=== PATIENT | female | born 1945 | race Two or more races ===

== ENCOUNTER 2018-07-09 15:14 | Emergency (ER) | payer MEDICARE ==
[2018-07-09 15:23] VITALS: BP 137/70; PULSE 81; TEMP 97.8; BMI 32.0
--- NOTE | 2018-07-09 15:54 | PDOC ---
History of Present Illness - General Chief Complaint: Headache Stated Complaint: BLOOD PRESSURE CHECK - History of Present Illness Initial Comments: 07/09/18 15:53 73 yo F with h/o HTN who p/w GUPTA, and lightheadedness. Patient Uzbek speaking ( foreign language interpreter #[id number]). Patient reports acute onset of dull 3/10, diffuse, unremitting headache and lightheadedness beginning this morning. No identifiable triggers or alleviators. GUPTA consistent with prior headaches in past. GUPTA gradual, and minimal at onset. Denies OTC analgesia or symptom control. No photophobia, phonophobia. Denies fall, head trauma, neck trauma, LOC. Patient denies lacrimation, rhinnorhea, vision change, tinnitus, hearing loss, vertigo, neck stiffness, pain, vertigo, N/V, F,C, cough, CP, SOB, urinary complaints, abdominal pain, hematuria, diarrhea, constipation, BPR, lightheadedness, weakness, sensory changes. PMHx: as noted above ROS: as noted SHx: Denies Etoh, tobacco, IVDA Allergies: NKDA Past History - Past Medical History Allergies/Adverse Reactions: Allergies Allergy/AdvReac Type Severity Reaction Status Date / Time tramadol Allergy Intermediate Verified 07/09/18 15:19 Home Medications: Ambulatory Orders Aspirin Coated [Ecotrin -] 81 mg PO DAILY 07/12/15 Enalapril Maleate [Vasotec -] 20 mg PO DAILY 07/12/15 Gabapentin 100 mg PO DAILY 07/12/15 Insulin Lispro [Humalog] 25 unit SQ TID 07/12/15 Linagliptin [Tradjenta] 5 mg PO DAILY 07/12/15 Metformin HCl [Metformin HCl ER] 500 mg PO DAILY 07/12/15 Omeprazole [Prilosec (RX)] 40 mg PO DAILY 07/12/15 Pravastatin Sodium [Pravachol -] 40 mg PO DAILY 07/12/15 Anemia: No Asthma: No Cancer: No Cardiac Disorders: Yes (MITRAL VALVE DISEASE) CVA: No COPD: No CHF: No Dementia: No Diabetes: Yes GI Disorders: No Disorders: No HTN: Yes Hypercholesterolemia: Yes Liver Disease: No Seizures: No Thyroid Disease: No - Surgical History Abdominal Surgery: No Appendectomy: No Cardiac Surgery: No Cholecystectomy: Yes Lung Surgery: No Orthopedic Surgery: Yes (BACK AND C-SPINE SX) - Suicide/Smoking/Psychosocial Hx Smoking History: Never smoked Have you smoked in the past 12 months: No Information on smoking cessation initiated: No Hx Alcohol Use: No Drug/Substance Use Hx: No Substance Use Type: None Hx Substance Use Treatment: No Review of Systems - Review of Systems Comments:: 07/09/18 15:53 GENERAL/CONSTITUTIONAL: No fever or chills. No weakness. HEAD, EYES, EARS, NOSE AND THROAT: No change in vision. No ear pain or discharge. No sore throat. CARDIOVASCULAR: No chest pain or shortness of breath RESPIRATORY: No cough, wheezing, or hemoptysis. GASTROINTESTINAL: No nausea, vomiting, diarrhea or constipation. GENITOURINARY: No dysuria, frequency, or change in urination. MUSCULOSKELETAL: No joint or muscle swelling or pain. No neck or back pain. SKIN: No rash NEUROLOGIC:+headache,and lightheadedness. No vertigo, loss of consciousness, or change in strength/sensation. ENDOCRINE: No increased thirst. No abnormal weight change HEMATOLOGIC/LYMPHATIC: No anemia, easy bleeding, or history of blood clots. ALLERGIC/IMMUNOLOGIC: No hives or skin allergy. *Physical Exam - Vital Signs Last Vital Signs Temp Pulse Resp BP Pulse Ox 97.8 F 81 18 137/70 100 07/09/18 15:20 07/09/18 15:20 07/09/18 15:20 07/09/18 15:20 07/09/18 15:20 - Physical Exam Comments: 07/09/18 15:53 GENERAL: Awake, alert, and fully oriented, in no acute distress HEAD: No signs of trauma, normocephalic, atraumatic EYES: PERRLA, EOMI, sclera anicteric, conjunctiva clear ENT: Hearing grossly normal, nares patent, oropharynx clear without exudates. Moist mucosa NECK: Normal ROM, supple, no lymphadenopathy, JVD, or masses LUNGS: No distress, speaks full sentences, clear to auscultation bilaterally HEART: Regular rate and rhythm, normal S1 and S2, no murmurs, rubs or gallops, peripheral pulses normal and equal bilaterally. EXTREMITIES : Normal inspection, Normal range of motion, no edema. No clubbing or cyanosis. NEUROLOGICAL: Cranial nerves II through XII grossly intact. Normal speech, normal gait with cane, no focal sensorimotor deficits. Neg dysmetria on FTN, HTS. SKIN: Warm, Dry, normal turgor, no rashes or lesions noted Medical Decision Making - Medical Decision Making 07/09/18 16:47 73 yo F with h/o HTN who p/w GUPTA, and lightheadedness. VSS, AF. Absent neuro deficits on physical exam. Absent meningismus, or other alarm findings of GUPTA. Low suspciion SAH, hematoma, TIA. Patient endorses lightheadedness. Will assess for VBI, hypoglycemia, hypovolemia, cardiac dysarrythmias, electrolyte abnml, toxic and metabolic derangements, acid base disturbances, infection. Ed Course: Patient refuses all lab imaging, and head imaging. Patient seen ambulating hallways 07/09/18 16:50 Patient eloped from emergency department before complete medical evaluation. *DC/Admit/Observation/Transfer Diagnosis at time of Disposition: Eloped from emergency department - Discharge Dispostion Disposition: ELOPED Condition at time of disposition: Unchanged/Unknown - Referrals Referrals: Marco Chavez [Primary Care Provider] - - Patient Instructions Additional Instructions: Please return to the emergency department with any new or worsening symptoms or concerns. Please follow up with your primary care physician within 72 hours. - Post Discharge Activity - Attestations Physician Attestion: 07/09/18 15:53 I attest to the information provided in this note.
--- NOTE | 2018-07-09 16:29 | PDOC ---
Attending Attestation - Resident Resident Name: KyreeStarDeclan - ED Attending Attestation I have performed the following: I have examined & evaluated the patient, The case was reviewed & discussed with the resident, I agree w/resident's findings & plan, Exceptions are as noted - HPI HPI: 07/11/18 08:37 Ms Maki is a 73 yo F with h/o HTN, DM, HLD who p/w GUPTA, and lightheadedness. She reports gradual onset of dull 3/10, diffuse, headache beginning this morning which is similar to prior headaches. Has not taken tylenol for pain No photophobia, phonophobia. No neck stiffness no head trauma - Physicial Exam PE: 07/09/18 16:45 GENERAL: Awake, alert, and fully oriented, in no acute distress HEAD: No signs of trauma, normocephalic, atraumatic EYES: PERRLA, EOMI, sclera anicteric, conjunctiva clear ENT: Hearing grossly normal, nares patent, oropharynx clear withoutexudates. Moist mucosa NECK: Normal ROM, supple, no nuchal rigidity LUNGS: No distress, speaks full sentences, clear to auscultation bilaterally HEART: Regular rate and rhythm, normal S1 and S2, no murmurs, rubs or gallops, peripheral pulses normal and equal bilaterally. EXTREMITIES : Normal inspection, Normal range of motion NEUROLOGICAL: Cranial nerves II through XII grossly intact. Normal speech, normal gait with cane, no focal sensorimotor deficits. Neg dysmetria on FTN, HTS. SKIN: Warm, Dry, normal turgor, no rashes or lesions noted - Medical Decision Making 73 yo F with h/o HTN who p/w GUPTA, and lightheadedness. she refused work up She presents to the nurses station requesting to be discharged because she came with someone who is leaving Pt unwilling to stay for any additional testing or discussion she eloped from the ER
== END 2018-07-09 16:44 | disposition left against medical advice (07) ==
LOC: JER 15:14
DX: R51 Headache (principal); R42 Dizziness and giddiness; I10 Essential (primary) hypertension; E78.00 Pure hypercholesterolemia, unspecified; E11.9 Type 2 diabetes mellitus without complications; Z79.4 Long term (current) use of insulin
CPT/HCPCS: 99281-25